=== PATIENT | male | born 1995 | race African-American/Black ===

== ENCOUNTER 2018-09-12 21:34 | Observation (INO) | payer MEDICAID ==
[~2018-09-12] VITALS: Ht 170.2 cm; Wt 75.5 kg
[2018-09-12] MEDS ORDERED: NS(*) 0.9% 1000 ML BAG 1,000 ML IV ONE (21:42)
[2018-09-12] MEDS ORDERED: LORazepam 2 MG/ML VIAL ONE (21:44)
[2018-09-12] MEDS ORDERED: LORazepam 2 MG/ML VIAL IVP ONE (21:45)
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
[2018-09-12 21:58] LABS: PLATELET COUNT, AUTOMATED 294 K/uL (150-450)
--- NOTE | 2018-09-12 22:07 | EKG ---
FACILITY: [facility] [place] PATIENT NAME: MARQUIS REY : [id number] MR: [id number] V: [id number] EXAM DATE: ORDERING PHYSICIAN: ODIN BRAND TECHNOLOGIST: ALEXI Test Reason : AMS Blood Pressure : / mmHG Vent. Rate : 105 BPM Atrial Rate : 105 BPM P-R Int : 148 ms QRS Dur : 086 ms QT Int : 340 ms P-R-T Axes : 079 077 044 degrees QTc Int : 449 ms Sinus tachycardia Anteroseptal infarct , age undetermined vs lead placement Abnormal ECG Confirmed by ANNY YEPEZ ([id number]) on 09/13/2018 12:23:54 AM Referred By: Confirmed By:ANNY YEPEZ
--- NOTE | 2018-09-12 22:39 | RADIOLOGY IMAGING REPORT ---
FACILITY: [facility] PATIENT NAME: Marquis Dowd : 1995 MR: [id number] V: [id number] EXAM DATE: ORDERING PHYSICIAN: ODIN BRAND TECHNOLOGIST: Location: [facility] Patient: Marquis Noemí : 1995 Visit/Account:[id number] Date of Sevice: 09/12/2018 CT BRAIN NO CONTRAST EXAMINATION: CT head/brain without contrast HISTORY: EtOH and loss of consciousness TECHNIQUE: Contiguous axial images were obtained from the skull base to the vertex without intravenou s contrast. One of the following dose optimization techniques was utilized in the performance of this exam: Autom ated exposure control; adjustment of the mA and/or kV according to the patient's size; or use of an i terative reconstruction technique. Specific details can be referenced in the facility's radiology C T exam operational policy. COMPARISON STUDIES: None FINDINGS: Ventricles/sulci/fissures: Negative Masses/hemorrhage/midline shift: Negative White matter: Negative Emery-white differentiation: Negative Extra-axial spaces: Negative Dural venous sinuses/arterial structures: Negative Skull base/calvarium: Negative Visualized mastoid air cells/paranasal sinuses: Negative IMPRESSION: 1. Negative CT scan of the head for acute intracranial pathology Report Dictated By: Lc Partida MD at 09/12/2018 10:32 PM Report E-Signed By: Lc Partida MD at 09/12/2018 10:34 PM WSN:[id number]
[2018-09-13] VITALS (20 sets, daily range): BP systolic 84–123; BP diastolic 47–89
[2018-09-13] MEDS ORDERED: INFLUENZA VIRUS VAC 0.5ML SYR IM ONLY ONE (01:20)
[2018-09-13] MEDS ORDERED: LORazepam 2 MG/ML VIAL IVP PRN (01:20)
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
[2018-09-13] MEDS ORDERED: FLUMAZENIL 0.1 MG/ML 5 ML VIAL IVP PRN ×2 (02:10→02:40)
[2018-09-13] MEDS: NS(*) 0.9% 1000 ML BAG 1,000 ML IV PRN ×2 (02:35→06:31)
--- NOTE | 2018-09-13 04:33 | RADIOLOGY IMAGING REPORT ---
FACILITY: PATIENT NAME: Marquis Dowd : 1995 MR: [id number] V: [id number] EXAM DATE: [id number] ORDERING PHYSICIAN: ANNY YEPEZ TECHNOLOGIST: Location: [facility] [place] Patient: Marquis Noemí : 1995 Visit/Account:[id number] Date of Sevice: 09/13/2018 INDICATION: Left knee pain EXAM DATE: 09/13/2018 1:47 AM COMPARISON: None. FINDINGS: 3 views left knee. Mineralization is normal. Overall alignment is normal. No displaced fracture. Q uestion lateral femoral notch sign. Joint spaces are well-maintained. Soft tissues are unremarkable . IMPRESSION: Question left lateral femoral notch sign which can be associated with ACL injury. Corre late with history and exam. Report Dictated By: Dominick Ng MD at 09/13/2018 4:25 AM Report E-Signed By: Dominick Ng MD at 09/13/2018 4:29 AM WSN:[id number]
[2018-09-13 05:42] LABS: PLATELET COUNT, AUTOMATED 258 K/uL (150-450)
[2018-09-13] MEDS ORDERED: NS(*) 0.9% 1000 ML BAG 1,000 ML IV PRN (08:06)
[2018-09-13] MEDS ORDERED: oxyCODONE HCL 5 MG CAP PO PRN (08:10)
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
[2018-09-13] MEDS ORDERED: OXYC5TAB38 PO (12:40)
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
== END 2018-09-13 12:40 | disposition home or self-care (01) ==
LOC: ER 21:48 → ICU 09-13 01:21 → INTOOBSV 09-13 01:21 → UNDOADMOB 09-13 01:21 → ICU 09-13 01:21 → UNDODISOB 09-13 13:30
PROVIDERS: ADMIT Internal Medicine; ATTEND Internal Medicine
DX: R41.0 Disorientation, unspecified (principal); F10.920 Alcohol use, unspecified with intoxication, uncomplicated; G89.29 Other chronic pain; R56.9 Unspecified convulsions; R79.89 Other specified abnormal findings of blood chemistry
CPT/HCPCS: 36415; 36600; 70450; 73562; 80305; 81001; 82140; 82375; 82550; 82803; 83605; 84443; 84484; 85025; 93005; 96361; 96374; 99291; G0378; G0480; J2060; J3490; J7030; 80320; 80329; 82040; 82247; 82310; 82374; 82435; 82565; 82947; 84075; 84132; 84155; 84295; 84450; 84460; 84520